=== PATIENT | female | born 1950 | race African-American/Black ===

== ENCOUNTER → 2016-11-16 | Outpatient (CLI) | payer BC, OTHER ==
[~2016-11-16] MED LIST: ASPIR 8181 MG; CLARITIN10 MG; COZAAR 25 MG TA25 M1; LOPRESSOR100 M1 PO; NEXIUM40 MG; OMEGA-31000 M1
== END ==
LOC: CAT 11-03 18:00
DX: D17.79 Benign lipomatous neoplasm of other sites (principal); G93.89 Other specified disorders of brain

== ENCOUNTER 2017-01-28 02:18 | Emergency (ER) | payer MEDICARE, OTHER ==
[~2017-01-28] VITALS: Ht 170.2 cm; Wt 95.3 kg
[2017-01-28] MEDS ORDERED: FLONASE 0.05%50 MCG NASAL (02:25)
[2017-01-28] MEDS ORDERED: AMLODIPINE BESY10 MG PO (02:25)
[2017-01-28 04:18] VITALS: BP 118/60
== END 2017-01-28 03:51 | disposition home or self-care (01) ==
LOC: ER 02:18
DX: S03.00XA Dislocation of jaw, unspecified side, initial encounter (principal); I10 Essential (primary) hypertension; X58.XXXA Exposure to other specified factors, initial encounter; Y93.84 Activity, sleeping; Y92.89 Other specified places as the place of occurrence of the external cause; Y99.8 Other external cause status

== ENCOUNTER 2018-02-24 17:01 | Emergency (ER) | payer MEDICARE ==
[~2018-02-24] VITALS: Ht 170.2 cm; Wt 99.3 kg
[~2018-02-24 17:01] MED LIST changes: +AMLODIPINE BESY10 MG PO; +FLONASE 0.05%50 MCG NASAL
[2018-02-24] MEDS ORDERED: MOBIC15 MG PO (18:37)
[2018-02-24] MEDS ORDERED: NORCO 5-325 TA1 EACH PO (18:39)
[2018-02-24 19:15] VITALS: BP 145/53
== END 2018-02-24 19:16 | disposition home or self-care (01) ==
LOC: ER 17:01
DX: S00.33XA Contusion of nose, initial encounter (principal); S80.01XA Contusion of right knee, initial encounter; I10 Essential (primary) hypertension; V89.2XXA Person injured in unspecified motor-vehicle accident, traffic, initial encounter; Y93.89 Activity, other specified; Y92.89 Other specified places as the place of occurrence of the external cause; Y99.8 Other external cause status

== ENCOUNTER 2018-03-03 22:57 | Emergency (ER) | payer MEDICARE ==
[~2018-03-03] VITALS: Ht 170.2 cm; Wt 99.8 kg
[~2018-03-03 22:57] MED LIST changes: +MOBIC15 MG PO; +NORCO 5-325 TA1 EACH PO
[2018-03-03 23:04] VITALS: BP 175/73
== END 2018-03-03 23:33 | disposition home or self-care (01) ==
LOC: ER 22:57
DX: R42 Dizziness and giddiness (principal); F41.9 Anxiety disorder, unspecified; T38.0X5A Adverse effect of glucocorticoids and synthetic analogues, initial encounter; Y92.89 Other specified places as the place of occurrence of the external cause; I10 Essential (primary) hypertension

== ENCOUNTER → 2020-05-27 | Outpatient (CLI) | payer MEDICARE | LOC: ULTRA 14:00 | PROVIDERS: ATTEND Family Medicine | DX: N28.1 Cyst of kidney, acquired (principal); R19.00 Intra-abdominal and pelvic swelling, mass and lump, unspecified site ==

== ENCOUNTER → 2020-05-28 | Outpatient (CLI) | payer MEDICARE ==
[2020-05-28 11:27] LABS: CREATININE 1.3 mg/dL (0.6-1.0)
== END ==
LOC: CAT 10:42
PROVIDERS: ATTEND Family Medicine
DX: R19.00 Intra-abdominal and pelvic swelling, mass and lump, unspecified site (principal); M79.89 Other specified soft tissue disorders; E27.8 Other specified disorders of adrenal gland

== ENCOUNTER → 2020-06-04 | Outpatient (CLI) | payer MEDICARE ==
--- NOTE | 2020-06-10 17:06 | PATH ---
[facility] [address] [place] [address] PATHOLOGY RPT PROCEDURE Name: KAREN LOMAS Room #: REG [facility] Luke.#: [id number] Admission: 06/04/20 Date of : 46 Discharge: Report #: [id number] Path Case #: [id number] [facility] Accession Number: [id number] . 01 Material submitted: . abdomen - ABDOMINAL MASS . 02 Diagnosis: Abdominal mass, needle core biopsy: - POORLY DIFFERENTIATED ADENOCARCINOMA, SEE COMMENT. (IUV:pit 06/07/2020) QTP 06/07/2020 1112 Local . 02 Comment: Examination shows a high-grade malignant epithelial neoplasm forming glands in scattered foci. Approximately 50% of the tissue is necrotic. Multiple properly controlled immunohistochemical stains are performed on block A2. The malignant cells show membranous reactivity with CK7 as well as CK19. CDX2 shows strong nuclear reactivity within much of the malignancy. Scattered cells show canalicular pattern reactivity with monoclonal CEA as well. The non-reactive immunohistochemical stains included p53, PAX-8, ER, CK20, vimentin, HBME-1, Hep-Par, WT1, D2-40, and p63. Subsequent to reviewing the immunohistochemical stains two additional immunohistochemical stains are added (TTF-1 as well as AFP and the results of these will be reported in an addendum to follow). Based on the reactive immunohistochemical staining pattern as well as the morphology, the most likely origin for this poorly differentiated adenocarcinoma may be upper gastrointestinal tract (esophageal, stomach), as well as pancreatic origin in addition to the ampulla of Vater. Yolk sac tumor shows similar staining reactivity pattern, therefore AFP is added to further delineate the origin. The non-reactive immunohistochemical stains argue against a squamous cell carcinoma, lower gastrointestinal tract origin (non-reactive CK20), Mullerian origin (includes endometrial as well as ovarian), renal cell carcinoma, hepatocellular carcinoma, as well as a mesothelioma. . Dr. Kelly Singh has seen a statement services representative H and E slide and concurs with the diagnosis of malignancy. . Findings of this case are discussed with Dr. Frye at 2:45 pm on 06/06/2020. (IUV:pit 06/07/2020) . 02 Addendum: . This addendum is issued subsequent to reviewing properly-controlled TTF-1 and AFP immunohistochemical stains performed on block A2: . [address] [address] PATHOLOGY RPT PROCEDURE Name: KAREN LOMAS Room #: REG SIS Hendricks#: [id number] Admission: 06/04/20 Date of : 46 Discharge: Report #: [id number] Path Case #: [id number] TTF-1: Shows no reactivity AFP: Shows scattered rare membranous reactivity; however, with a diffuse nonspecific background. It is unclear if the reactivity identified within the cells is pertinent. Therefore, the originally rendered interpretation of a poorly-differentiated adenocarcinoma with the possible origins from the upper gastrointestinal tract (esophageal as well as gastric), of pancreatic origin, the ampulla of Vater, as well as possibility of yolk sac tumor (ovarian) remains. The non-reactive TTF-1 suggests against an adenocarcinoma of lung origin. . The originally rendered diagnosis remains unchanged. . (IUV:mml; 06/10/2020) . . Professional services performed by [employer] at [facility], [address] [place], [place] [address] , [place] [address]. [facility] performed by [facility] at [address] [place] [address], [address], [place] [address]. PENDING SALE TO [facility]/06/10/2020 Addendum Electronically Signed by Lyla Cates MD, Pathologist . 02 Electronically signed: . Lyla Cates MD, Pathologist NPI- [id number] . 01 Gross description: . The specimen is received in formalin, labeled "Karen Goodine, abdominal mass". Received are four needle cores of pale goldberg soft tissue ranging in length from 0.8 to 2.3 cm in length by 0.1 cm in diameter. The specimen is submitted entirely in cassette A1 through A3. ([facility]; 06/05/2020) QA/QAC 06/05/2020 1248 Local . 02 Pathologist provided ICD-10: C76.2 . 02 CPT . 965304, [id number], V27041 Specimen Comment: A courtesy copy of this report has been sent to [phone] Specimen Comment: [phone] Specimen Comment: Report sent to / DR FRYE Performed at: [address], [place], [place] [id number] MD Gigi Hess MD Phone: [phone] Performed at: 02 [facility] [address] [place] [address] PATHOLOGY RPT PROCEDURE Name: KAREN LOMAS Room #: REG SIS Butler.#: [id number] Admission: 06/04/20 Date of : 46 Discharge: Report #: [id number] Path Case #: [id number] [address] [place], [place] [id number] MD Lyla Cates MD Phone: [phone]
== END | disposition home or self-care (01) ==
LOC: LAB 08:37 → CAT 08:37
PROVIDERS: ATTEND Family Medicine
DX: C76.2 Malignant neoplasm of abdomen (principal); E11.9 Type 2 diabetes mellitus without complications; I73.9 Peripheral vascular disease, unspecified; Z98.890 Other specified postprocedural states; Z79.899 Other long term (current) drug therapy; Z79.82 Long term (current) use of aspirin